=== PATIENT | female | born 2000 | race Caucasian/White ===

== ENCOUNTER 2018-02-02 19:34 | Emergency (ER) | payer OTHER, SELFPAY ==
[2018-02-02 19:47] VITALS: BP 145/92; PULSE 124; RESP 20; TEMP 39.4; O2SAT 99; BMI 24.0
--- NOTE | 2018-02-02 20:01 | ED.HA ---
HPI - Headache <GASTON Schmidt - Last Filed: 02/02/18 21:17> General Chief Complaint: Headache Stated Complaint: HOT THEN COLD, PASSED OUT A FEW TIMES Time Seen by Provider: 02/02/18 20:01 Source: patient Mode of arrival: ambulatory Limitations: no limitations History of Present Illness HPI Narrative: pt stating that around 1100 this am she was in shower and started getting lightheaded so got out of shower and then passed out, not sure what she hit her head on, maybe floor or sink, but hit back of head on something and now has a headache, tried to get up and fell back down striking R elbow, c/o elbow pain, R handed, lightheadedness resolved and feels back to normal now except for the headache, never has passed out before MD Complaint: headache Onset (ago): day(s) (1) Onset description: sudden Location: other (top back of head) Severity: mild Relieving factors: nothing Exacerbating factors: none Context: other (as above) Associated symptoms: syncope Treatments prior to arrival: none Related Data Allergies Allergy/AdvReac Type Severity Reaction Status Date / Time No Known Drug Allergies Allergy Verified 02/02/18 20:00 Review of Systems <GASTON Schmidt - Last Filed: 02/02/18 21:17> Review of Systems All systems reviewed & are unremarkable except as noted in HPI and below Constitutional Reports as per HPI and Reports system reviewed and no additional complaints, except as docu Eyes Denies change in vision, Denies eye discharge, Denies irritation and Denies loss of vision ENT Ears, Nose, Mouth, and Throat: Denies change in voice, Denies neck pain and Denies sore throat Cardiovascular Reports as per HPI, Denies chest pain, Reports syncope, Denies irregular heart rhythm, Reports lightheadedness, Denies palpitations, Denies dyspnea, Denies dyspnea on exertion and Denies orthopnea Respiratory Denies cough, Denies dyspnea, Denies dyspnea on exertion and Denies wheezing Gastrointestinal Gastrointestinal: Denies abdominal pain, Denies change in bowel habits, Denies diarrhea, Denies nausea and Denies vomiting Genitourinary Denies hematuria, Denies flank pain, Denies urinary incontinence and Denies urinary urgency Musculoskeletal Reports as per HPI, Denies abnormal gait, Denies back pain and Denies neck pain Integumentary/Breasts Denies pruritus, Denies erythema, Denies rash and Denies wounds Neurologic Denies abnormal gait, Denies confusion, Reports syncope and Denies loss of vision Psychiatric Denies anxiety, Denies confusion, Denies depression, Denies homicidal ideation and Denies suicidal ideation Endocrine Denies palpitations Hematologic/Lymphatic Denies easy bruising Allergic/Immunologic Denies wheezing Exam <Ivanna Mayens SURFACE GRINDER - Last Filed: 02/02/18 21:17> Initial Vital Signs Initial Vital Signs: Vital Signs Temperature 102.9 F H 02/02/18 19:47 Pulse Rate 124 H 02/02/18 19:47 Respiratory Rate 20 02/02/18 19:47 Blood Pressure 145/92 H 02/02/18 19:47 Pulse Oximetry 99 02/02/18 19:47 Const General: cooperative, healthy appearing, comfortable, well developed and well groomed Nutritional Appearance: average body habitus Orientation: alert, awake and oriented x3 HENMT Head: normal to inspection, normocephalic, atraumatic, No abrasion, No contusion, No hematoma, No laceration, No occipital foramen tenderness, No palpable skull fracture and No scalp tenderness Ears: hearing grossly normal bilaterally, external ears normal, TM's normal bilaterally and mastoids normal Nose: external nose normal, nares normal and septum normal Face and sinus: sinuses nontender, face symmetric and laceration (R eyebrow area, 1cm closed with scab, no s/s of infection, no erythema, mild tenderness, mild swelling and contusion to that area) Mouth: oral mucosae normal, lip normal, tongue normal, oropharynx normal, moist mucous membranes and No mouth trauma Teeth and gingiva: dentition normal and gingiva normal Throat: posterior oropharynx normal, tonsils normal and uvula midline Eyes General: appearance normal, both eyes and all related structures Visual Connelly: normal visual connelly by confrontation Eyelids: eyelids normal Conjunctivae: conjunctivae normal Sclera: sclerae normal Pupils: PERRL EOM: EOM intact bilaterally Direct ophthalmoscopy: normal light reflex, no papilledema, fundi normal bilaterally and anterior chamber normal Neck Neck: normal visual inspection, full ROM, no meningeal signs, trachea midline, supple, No lymphadenopathy, No midline deformity, No tender and No tracheal deviation Chest Chest: normal inspection of the chest Resp Effort & Inspection: normal respiratory effort and able to speak in complete sentences Auscultation: clear to auscultation bilaterally Cardio Rate: tachycardic (HR 116) Rhythm: regular rhythm Heart Sounds: S1 normal and S2 normal Back/Spine/Pelvis Back: normal to inspection and No back tenderness Cervical Spine: cervical ROM normal Thoracic/Lumbar Spine: thoracic and lumbar spine normal to inspection and thoraco-lumbar ROM normal Sacroiliac Joints: nontender Skin General: no rashes or lesions noted, elasticity normal, turgor normal and dry skin Neuro General: alert, awake, oriented x3 and meningeal signs present Cognition: normal cognition Speech: speech normal Gait: normal gait Motor: muscle tone normal throughout Sensory Exam: no sensory deficits noted Extrem General: normal to inspection and full ROM Right upper extremity: full ROM, normal capillary refill and elbow/forearm (mild swelling, contusion, tenderness to posterior elbow) Details: tenderness, swelling and normal ROM Psych Appearance: grossly normal and well kempt Mental Status: mental status grossly normal Speech and Movement: speech and movement normal Mood: congruent mood Affect: normal affect Attitude: cooperative Thought Process: normal Thought Content: normal Judgment: judgment good <Ankit Dukes DO - Last Filed: 02/02/18 23:52> Initial Vital Signs Initial Vital Signs: Vital Signs Temperature 102.9 F H 02/02/18 19:47 Pulse Rate 124 H 02/02/18 19:47 Respiratory Rate 20 02/02/18 19:47 Blood Pressure 145/92 H 02/02/18 19:47 Pulse Oximetry 99 02/02/18 19:47 Course <GASTON Schmidt - Last Filed: 02/02/18 21:17> Course Narrative: tx options discussed on whether to do blood work, ekg and work up for syncope or just xray elbow, pt was only concerned about possible head injury, and since neuro exam was normal on exam and per pec[facility] head ct criteria, pt does not qualify for ct head, pt does not want syncope work up but agreed to let me xray her elbow 2039 results and dc plan discussed Orders Ordered: ED Orders 02/02/18 19:50 Influenza A and B by PCR Rapid Stat 02/02/18 20:11 XR elbow RT 2V Stat Discontinued Medications Acetaminophen (Tylenol) 975 mg PO NOW ONE Stop: 02/02/18 20:03 Last Admin: 02/02/18 20:04 Dose: 975 mg Acetaminophen (Tylenol) 975 mg PO NOW ONE Stop: 02/02/18 20:44 Last Admin: 02/02/18 21:02 Dose: Not Given Vital Signs - 8 hr 02/02/18 19:47 02/02/18 20:20 02/02/18 21:02 Temperature 102.9 F H 99.6 F Pulse Rate 124 H Pulse Rate [Orthostatic Lying] 111 H Pulse Rate [Orthostatic Sitting] 115 H Pulse Rate [Orthostatic Standing] 123 H Respiratory Rate 20 Blood Pressure 145/92 H Blood Pressure [Orthostatic Lying] 110/67 Blood Pressure [Orthostatic Sitting] 113/69 Blood Pressure [Orthostatic Standing] 110/68 Pulse Oximetry 99 02/02/18 21:04 Temperature 99.6 F Pulse Rate 95 H Pulse Rate [Orthostatic Lying] Pulse Rate [Orthostatic Sitting] Pulse Rate [Orthostatic Standing] Respiratory Rate 18 Blood Pressure 106/75 Blood Pressure [Orthostatic Lying] Blood Pressure [Orthostatic Sitting] Blood Pressure [Orthostatic Standing] Pulse Oximetry 97 <Ankit Dukes, DO - Last Filed: 02/02/18 23:52> Orders Ordered: ED Orders 02/02/18 19:50 Influenza A and B by PCR Rapid Stat 02/02/18 20:11 XR elbow RT 2V Stat Discontinued Medications Acetaminophen (Tylenol) 975 mg PO NOW ONE Stop: 02/02/18 20:03 Last Admin: 02/02/18 20:04 Dose: 975 mg Acetaminophen (Tylenol) 975 mg PO NOW ONE Stop: 02/02/18 20:44 Last Admin: 02/02/18 21:02 Dose: Not Given Vital Signs - 8 hr 02/02/18 19:47 02/02/18 20:20 02/02/18 21:02 Temperature 102.9 F H 99.6 F Pulse Rate 124 H Pulse Rate [Orthostatic Lying] 111 H Pulse Rate [Orthostatic Sitting] 115 H Pulse Rate [Orthostatic Standing] 123 H Respiratory Rate 20 Blood Pressure 145/92 H Blood Pressure [Orthostatic Lying] 110/67 Blood Pressure [Orthostatic Sitting] 113/69 Blood Pressure [Orthostatic Standing] 110/68 Pulse Oximetry 99 02/02/18 21:04 Temperature 99.6 F Pulse Rate 95 H Pulse Rate [Orthostatic Lying] Pulse Rate [Orthostatic Sitting] Pulse Rate [Orthostatic Standing] Respiratory Rate 18 Blood Pressure 106/75 Blood Pressure [Orthostatic Lying] Blood Pressure [Orthostatic Sitting] Blood Pressure [Orthostatic Standing] Pulse Oximetry 97 MDM - Headache <GASTON Schmidt - Last Filed: 02/02/18 21:17> Differential Diagnosis Differential diagnosis: Likely other (syncope, fall, head injury, contusion, lac, abrasion, fx) Lab Data Lab Results 02/02/18 Range/Units 19:50 Influenza A & B (PCR) Negative (Negative) Imaging Data xr elbow: Radiologist's impression: Patient: Carlota AndreMR#: [id number] : 2000Acct:[id number] Age/Sex: 17 / FDate of Service: 02/02/18 Loc: ED Accession Number: [id number] Procedure: XR elbow RT 2V Ordering Provider: Ivanna Wakefield PROCEDURE: XR ELBOW RT 2V INDICATIONS: fall TECHNIQUE: 2 views of the elbow were acquired. COMPARISON: None. FINDINGS: Bones: No fractures or dislocations. No suspicious bony lesions. Soft tissues: No elbow joint effusion. No suspicious soft tissue calcifications. IMPRESSION: No acute radiographic findings. If pain persists, repeat study in 5-7 days is recommended to exclude occult fracture. Dictated by: Cassy Clark M.D. on 02/02/2018 at 20:28 Approved by: Cassy Clark M.D. on 02/02/2018 at 20:30 <Ankit Dukes DO - Last Filed: 02/02/18 23:52> Lab Data Lab Results 02/02/18 Range/Units 19:50 Influenza A & B (PCR) Negative (Negative) Discharge Plan Departure Patient Disposition: Home Clinical Impression: Syncope, Closed head injury, Contusion of elbow, Fever, Viral illness Discharge Date/Time: 02/02/18 21:05 Interventions: ED Discharge Assessment Last Done: 02/02/18 21:04 Instructions: DI for Syncope in Adults (Fainting), Fever of Unknown Origin, DI for Contusion, Closed Head Injury, DI for Viral Syndrome Referrals: Johnny Brownlee MD [Physician] - DERECK Gayle [Medical Student] - Ankit Dugan MD [Physician] - Jane Arora [Medical Student] - Nathanael Gamez MD [Physician] - Radha Huff MD [Physician] - (follow up with pcp in 3 days if symptoms persist or not feeling better ) <Ankit Dukes DO - Last Filed: 02/02/18 23:52> Cosign ED Attending Jenniferature Attestation: I was available for consultation during this patient's emergency department encounter
[2018-02-02] MEDS: ACETAMINOPHEN 325 MG TABLET 975 MG PO (20:04)
--- NOTE | 2018-02-02 20:11 | DI.RAD.S_ITS ---
PROCEDURE: XR ELBOW RT 2V INDICATIONS: fall TECHNIQUE: 2 views of the elbow were acquired. COMPARISON: None. FINDINGS: Bones: No fractures or dislocations. No suspicious bony lesions. Soft tissues: No elbow joint effusion. No suspicious soft tissue calcifications. IMPRESSION: No acute radiographic findings. If pain persists, repeat study in 5-7 days is recommended to exclude occult fracture. Dictated by: Cassy Clark M.D. on 02/02/2018 at 20:28 Approved by: Cassy Clark M.D. on 02/02/2018 at 20:30
[2018-02-02 20:20] VITALS: BP 110/67; BP 110/68; BP 113/69; PULSE 111; PULSE 115; PULSE 123
--- NOTE | 2018-02-02 20:20 | PC.NURSE ---
patient stated that when she passed out in the shower she did hit her head but was not sure what she hit. she denies any nausea or vomiting. patient acting age appropriate. provider aware.
--- NOTE | 2018-02-02 20:22 | PC.NURSE ---
patient reports this morning falling in the shower after getting dizzy. no LOC. she does report a brief period when she had some blurry vision. she has a small bruise to the right lateral upper arm. nad.
--- NOTE | 2018-02-02 20:36 | ED_ITS ---
HPI - Headache <GASTON Schmidt - Last Filed: 02/02/18 21:17> General Chief Complaint: Headache Stated Complaint: HOT THEN COLD, PASSED OUT A FEW TIMES Time Seen by Provider: 02/02/18 20:01 Source: patient Mode of arrival: ambulatory Limitations: no limitations History of Present Illness HPI Narrative: pt stating that around 1100 this am she was in shower and started getting lightheaded so got out of shower and then passed out, not sure what she hit her head on, maybe floor or sink, but hit back of head on something and now has a headache, tried to get up and fell back down striking R elbow, c/o elbow pain, R handed, lightheadedness resolved and feels back to normal now except for the headache, never has passed out before MD Complaint: headache Onset (ago): day(s) (1) Onset description: sudden Location: other (top back of head) Severity: mild Relieving factors: nothing Exacerbating factors: none Context: other (as above) Associated symptoms: syncope Treatments prior to arrival: none Related Data Allergies Allergy/AdvReac Type Severity Reaction Status Date / Time No Known Drug Allergies Allergy Verified 02/02/18 20:00 Review of Systems <GASTON Schmidt - Last Filed: 02/02/18 21:17> Review of Systems All systems reviewed & are unremarkable except as noted in HPI and below Constitutional Reports as per HPI and Reports system reviewed and no additional complaints, except as docu Eyes Denies change in vision, Denies eye discharge, Denies irritation and Denies loss of vision ENT Ears, Nose, Mouth, and Throat: Denies change in voice, Denies neck pain and Denies sore throat Cardiovascular Reports as per HPI, Denies chest pain, Reports syncope, Denies irregular heart rhythm, Reports lightheadedness, Denies palpitations, Denies dyspnea, Denies dyspnea on exertion and Denies orthopnea Respiratory Denies cough, Denies dyspnea, Denies dyspnea on exertion and Denies wheezing Gastrointestinal Gastrointestinal: Denies abdominal pain, Denies change in bowel habits, Denies diarrhea, Denies nausea and Denies vomiting Genitourinary Denies hematuria, Denies flank pain, Denies urinary incontinence and Denies urinary urgency Musculoskeletal Reports as per HPI, Denies abnormal gait, Denies back pain and Denies neck pain Integumentary/Breasts Denies pruritus, Denies erythema, Denies rash and Denies wounds Neurologic Denies abnormal gait, Denies confusion, Reports syncope and Denies loss of vision Psychiatric Denies anxiety, Denies confusion, Denies depression, Denies homicidal ideation and Denies suicidal ideation Endocrine Denies palpitations Hematologic/Lymphatic Denies easy bruising Allergic/Immunologic Denies wheezing Exam <Ivanna Mayens PIANO MACHINE OPERATOR - Last Filed: 02/02/18 21:17> Initial Vital Signs Initial Vital Signs: Vital Signs Temperature 102.9 F H 02/02/18 19:47 Pulse Rate 124 H 02/02/18 19:47 Respiratory Rate 20 02/02/18 19:47 Blood Pressure 145/92 H 02/02/18 19:47 Pulse Oximetry 99 02/02/18 19:47 Const General: cooperative, healthy appearing, comfortable, well developed and well groomed Nutritional Appearance: average body habitus Orientation: alert, awake and oriented x3 HENMT Head: normal to inspection, normocephalic, atraumatic, No abrasion, No contusion , No hematoma, No laceration, No occipital foramen tenderness, No palpable skull fracture and No scalp tenderness Ears: hearing grossly normal bilaterally, external ears normal, TM's normal bilaterally and mastoids normal Nose: external nose normal, nares normal and septum normal Face and sinus: sinuses nontender, face symmetric and laceration (R eyebrow area , 1cm closed with scab, no s/s of infection, no erythema, mild tenderness, mild swelling and contusion to that area) Mouth: oral mucosae normal, lip normal, tongue normal, oropharynx normal, moist mucous membranes and No mouth trauma Teeth and gingiva: dentition normal and gingiva normal Throat: posterior oropharynx normal, tonsils normal and uvula midline Eyes General: appearance normal, both eyes and all related structures Visual Connelly: normal visual connelly by confrontation Eyelids: eyelids normal Conjunctivae: conjunctivae normal Sclera: sclerae normal Pupils: PERRL EOM: EOM intact bilaterally Direct ophthalmoscopy: normal light reflex, no papilledema, fundi normal bilaterally and anterior chamber normal Neck Neck: normal visual inspection, full ROM, no meningeal signs, trachea midline, supple, No lymphadenopathy, No midline deformity, No tender and No tracheal deviation Chest Chest: normal inspection of the chest Resp Effort & Inspection: normal respiratory effort and able to speak in complete sentences Auscultation: clear to auscultation bilaterally Cardio Rate: tachycardic (HR 116) Rhythm: regular rhythm Heart Sounds: S1 normal and S2 normal Back/Spine/Pelvis Back: normal to inspection and No back tenderness Cervical Spine: cervical ROM normal Thoracic/Lumbar Spine: thoracic and lumbar spine normal to inspection and thoraco-lumbar ROM normal Sacroiliac Joints: nontender Skin General: no rashes or lesions noted, elasticity normal, turgor normal and dry skin Neuro General: alert, awake, oriented x3 and meningeal signs present Cognition: normal cognition Speech: speech normal Gait: normal gait Motor: muscle tone normal throughout Sensory Exam: no sensory deficits noted Extrem General: normal to inspection and full ROM Right upper extremity: full ROM, normal capillary refill and elbow/forearm ( mild swelling, contusion, tenderness to posterior elbow) Details: tenderness, swelling and normal ROM Psych Appearance: grossly normal and well kempt Mental Status: mental status grossly normal Speech and Movement: speech and movement normal Mood: congruent mood Affect: normal affect Attitude: cooperative Thought Process: normal Thought Content: normal Judgment: judgment good <Ankit Dukes DO - Last Filed: 02/02/18 23:52> Initial Vital Signs Initial Vital Signs: Vital Signs Temperature 102.9 F H 02/02/18 19:47 Pulse Rate 124 H 02/02/18 19:47 Respiratory Rate 20 02/02/18 19:47 Blood Pressure 145/92 H 02/02/18 19:47 Pulse Oximetry 99 02/02/18 19:47 Course <GASTON Schmidt - Last Filed: 02/02/18 21:17> Course Narrative: tx options discussed on whether to do blood work, ekg and work up for syncope or just xray elbow, pt was only concerned about possible head injury, and since neuro exam was normal on exam and per [facility] head ct criteria, pt does not qualify for ct head, pt does not want syncope work up but agreed to let me xray her elbow 2039 results and dc plan discussed Orders Ordered: ED Orders 02/02/18 19:50 Influenza A and B by PCR Rapid Stat 02/02/18 20:11 XR elbow RT 2V Stat Discontinued Medications Acetaminophen (Tylenol) 975 mg PO NOW ONE Stop: 02/02/18 20:03 Last Admin: 02/02/18 20:04 Dose: 975 mg Acetaminophen (Tylenol) 975 mg PO NOW ONE Stop: 02/02/18 20:44 Last Admin: 02/02/18 21:02 Dose: Not Given Vital Signs - 8 hr 02/02/18 19:47 02/02/18 20:20 02/02/18 21:02 Temperature 102.9 F H 99.6 F Pulse Rate 124 H Pulse Rate [Orthostatic Lying] 111 H Pulse Rate [Orthostatic Sitting] 115 H Pulse Rate [Orthostatic Standing] 123 H Respiratory Rate 20 Blood Pressure 145/92 H Blood Pressure [Orthostatic Lying] 110/67 Blood Pressure [Orthostatic Sitting] 113/69 Blood Pressure [Orthostatic Standing] 110/68 Pulse Oximetry 99 02/02/18 21:04 Temperature 99.6 F Pulse Rate 95 H Pulse Rate [Orthostatic Lying] Pulse Rate [Orthostatic Sitting] Pulse Rate [Orthostatic Standing] Respiratory Rate 18 Blood Pressure 106/75 Blood Pressure [Orthostatic Lying] Blood Pressure [Orthostatic Sitting] Blood Pressure [Orthostatic Standing] Pulse Oximetry 97 <Ankit Dukes, DO - Last Filed: 02/02/18 23:52> Orders Ordered: ED Orders 02/02/18 19:50 Influenza A and B by PCR Rapid Stat 02/02/18 20:11 XR elbow RT 2V Stat Discontinued Medications Acetaminophen (Tylenol) 975 mg PO NOW ONE Stop: 02/02/18 20:03 Last Admin: 02/02/18 20:04 Dose: 975 mg Acetaminophen (Tylenol) 975 mg PO NOW ONE Stop: 02/02/18 20:44 Last Admin: 02/02/18 21:02 Dose: Not Given Vital Signs - 8 hr 02/02/18 19:47 02/02/18 20:20 02/02/18 21:02 Temperature 102.9 F H 99.6 F Pulse Rate 124 H Pulse Rate [Orthostatic Lying] 111 H Pulse Rate [Orthostatic Sitting] 115 H Pulse Rate [Orthostatic Standing] 123 H Respiratory Rate 20 Blood Pressure 145/92 H Blood Pressure [Orthostatic Lying] 110/67 Blood Pressure [Orthostatic Sitting] 113/69 Blood Pressure [Orthostatic Standing] 110/68 Pulse Oximetry 99 02/02/18 21:04 Temperature 99.6 F Pulse Rate 95 H Pulse Rate [Orthostatic Lying] Pulse Rate [Orthostatic Sitting] Pulse Rate [Orthostatic Standing] Respiratory Rate 18 Blood Pressure 106/75 Blood Pressure [Orthostatic Lying] Blood Pressure [Orthostatic Sitting] Blood Pressure [Orthostatic Standing] Pulse Oximetry 97 MDM - Headache <GASTON Schmidt - Last Filed: 02/02/18 21:17> Differential Diagnosis Differential diagnosis: Likely other (syncope, fall, head injury, contusion, lac , abrasion, fx) Lab Data Lab Results 02/02/18 Range/Units 19:50 Influenza A & B (PCR) Negative (Negative) Imaging Data xr elbow: Radiologist's impression: Patient: Carlota AndreMR#: [id number] : 2000Acct:[id number] Age/Sex: 17 / FDate of Service: 02/02/18 Loc: ED Accession Number: [id number] Procedure: XR elbow RT 2V Ordering Provider: Ivanna Wakefield PROCEDURE: XR ELBOW RT 2V INDICATIONS: fall TECHNIQUE: 2 views of the elbow were acquired. COMPARISON: None. FINDINGS: Bones: No fractures or dislocations. No suspicious bony lesions. Soft tissues: No elbow joint effusion. No suspicious soft tissue calcifications. IMPRESSION: No acute radiographic findings. If pain persists, repeat study in 5 -7 days is recommended to exclude occult fracture. Dictated by: Cassy Clark M.D. on 02/02/2018 at 20:28 Approved by: Cassy Clark M.D. on 02/02/2018 at 20:30 <Ankit Dukes DO - Last Filed: 02/02/18 23:52> Lab Data Lab Results 02/02/18 Range/Units 19:50 Influenza A & B (PCR) Negative (Negative) Discharge Plan Departure Patient Disposition: Home Clinical Impression: Syncope, Closed head injury, Contusion of elbow, Fever, Viral illness Discharge Date/Time: 02/02/18 21:05 Interventions: ED Discharge Assessment Last Done: 02/02/18 21:04 Instructions: DI for Syncope in Adults (Fainting), Fever of Unknown Origin, DI for Contusion, Closed Head Injury, DI for Viral Syndrome Referrals: Johnny Brownlee MD [Physician] - DERECK Gayle [Medical Student] - Ankit Dugan MD [Physician] - Jane Arora [Medical Student] - Nathanael Gamez MD [Physician] - Radha Huff MD [Physician] - (follow up with pcp in 3 days if symptoms persist or not feeling better ) <Ankit Dukes DO - Last Filed: 02/02/18 23:52> Cosign ED Attending Jenniferature Attestation: I was available for consultation during this patient's emergency department encounter
[2018-02-02 20:37] LABS: Influenza A and B by PCR Rapid Negative (Negative)
[2018-02-02 21:02] VITALS: TEMP 37.6
[2018-02-02 21:04] VITALS: BP 106/75; PULSE 95; RESP 18; TEMP 37.6; O2SAT 97
== END 2018-02-02 21:05 | disposition home or self-care (01) ==
PROVIDERS: Emergency Medicine; Emergency Provider Nurse Practitioner
DX: S09.90XA Unspecified injury of head, initial encounter (principal); S50.01XA Contusion of right elbow, initial encounter; B34.9 Viral infection, unspecified; R55 Syncope and collapse; R50.9 Fever, unspecified; W01.0XXA Fall on same level from slipping, tripping and stumbling without subsequent striking against object, initial encounter
CPT/HCPCS: 73070; 87400; 99283; 99284